=== PATIENT | female | born 1970 | race Caucasian/White ===

== ENCOUNTER 2017-06-02 20:35 | Emergency (ER) | payer OTHER ==
[~2017-06-02] VITALS: Ht 172.7 cm; Wt 90.7 kg
[2017-06-02 20:42] VITALS: Ht 172.7 cm; Wt 90.7 kg
[2017-06-02 21:18] LABS: BASOPHIL % 0.7 % (0-2); PLATELET COUNT 310 x10^3mcL (130-400); RED CELL DISTRIBUTION WIDTH 14.8 % (11.5-14.5)
[2017-06-02 21:20] LABS: CARBON DIOXIDE 21.3 mmol/L (21-32); CHLORIDE SERUM 104 mmol/L (98-107); CREATININE SERUM 0.8 mg/dL (0.6-1.0); GFR1 > 60 mL/min; GLUCOSE SERUM 112 mg/dL (74-106); POTASSIUM SERUM 3.7 mmol/L (3.5-5.1); SODIUM SERUM 139 mmol/L (136-145)
[2017-06-02 21:24] LABS: ALBUMIN 3.8 g/dL (3.4-5.0); ALKALINE PHOSPHATASE 78 U/L (46-116); ALT/SGPT 20 U/L (14-59); AST/SGOT 9 U/L (15-37); BILIRUBIN TOTAL 0.24 mg/dL (0.20-1.00); TOTAL PROTEIN, SERUM 7.4 g/dL (6.4-8.2)
[2017-06-02 23:39] VITALS: BP 119/72
== END 2017-06-02 23:39 | disposition home or self-care (01) ==
LOC: ED 20:35
PROVIDERS: Emergency Medicine
DX: G89.18 Other acute postprocedural pain (principal); M79.2 Neuralgia and neuritis, unspecified; Z88.5 Allergy status to narcotic agent; Z88.8 Allergy status to other drugs, medicaments and biological substances; M79.7 Fibromyalgia; G89.29 Other chronic pain
CPT/HCPCS: J2060; J2270; J3010; J7030; Q0092; Q9967

== ENCOUNTER 2018-05-12 19:51 | Emergency (ER) | payer OTHER | END 2018-05-12 22:30 | disposition home or self-care (01) | LOC: ED 19:51 ==